=== PATIENT | male | born 1995 | race Caucasian/White ===

== ENCOUNTER 2016-08-16 01:08 | Emergency (ER) | payer BC ==
[~2016-08-16] VITALS: Ht 174 cm; Wt 96.9 kg
[~2016-08-16 01:08] MED LIST: AMOX1TAB16 PO; CEPH500C2 PO; DEXA4TAB PO; HYDR-4246 PO; PHEN180S PO
--- OUTSIDE RECORDS SUMMARY | 2016-08-16 01:13 | XMS REPORT ---
Author Author Erika Portillo [facility] eClinicalWorks Address Unknown Phone Unavailable Care Team Providers Care Pellet Mill Operator Name Role Phone Erika Portillo CP Unavailable Allergies, Adverse Reactions, Alerts Substance Reaction Event Type N.K.D.A. Info Not Available Non Drug Allergy Problems Problem Type Condition Code Onset Dates Condition Status Problem Asymptomatic human immunodeficiency virus (HIV) infection status Z21 Active Assessment Asymptomatic human immunodeficiency virus (HIV) infection status Z21 Active Problem Depression F32.9 Active Assessment Dermatitis L30.9 Active Medications Medication Code System Code Instructions Start Date End Date Status Dosage Cephalexin [facility] [address]-40 500 MG Orally Twice a day September 16, 2015 1 capsule Bactroban [facility] [address]-50 2 % Externally Three times a day September 18, 2015 1 application to affected area Genvoya [facility] [address]-58 150 mg/150 mg/200/mg/10 mg Oral Once a day September 16, 2015 1 tablet Procedures Procedure Coding System Code Date Office Visit, Est Pt., Level 3 CPT-4 51582 September 16, 2015 Vital Signs Date/Time: September 16, 2015 BMIPercentile 76.93 % Temperature 98.3 F Wt Percentile 70.89 % Weight 167.8 lbs Height 68.5 in Respiratory Rate 16 /min Cardiac Monitoring Heart Rate 78 /min Blood Pressure Diastolic 70 mm Hg Blood Pressure Systolic 114 mm Hg BMI 25.14 Index Oximetry 98 % Results No Known Results Summary Purpose eClinicalWorks Submission
--- OUTSIDE RECORDS SUMMARY | 2016-08-16 01:13 | XMS REPORT ---
Author Author Tierra Dupree eClinicalWorks Address Unknown Phone Unavailable Care Team Providers Care Motion Picture Projectionist Name Role Phone Tierra Dupree CP Unavailable Allergies, Adverse Reactions, Alerts Substance Reaction Event Type N.K.D.A. Info Not Available Non Drug Allergy Problems Problem Type Condition ICD-9 Code Onset Dates Condition Status Assessment Other general medical examination for administrative purposes V70.3 Active Medications No Known Medications Procedures Procedure Coding System Code Date ADMINISTRATION, 1ST IMMUNIZATION CPT-4 44840 June 01, 2014 H PAPILLOMA VACC 3 DOSE IM CPT-4 96888 June 01, 2014 MENINGOCOCCAL VACCINE, IM CPT-4 35380 June 01, 2014 WELL ADOLESCENT CHECK, EST (12-17 YR.) CPT-4 22163 June 01, 2014 ADMINISTRATION, EA ADDL IMMUNIZATION CPT-4 14767 June 01, 2014 Vital Signs Date/Time: June 01, 2014 Height 66 in Ht Percentile 12.12 % Weight 212.25 lbs Temperature 98.0 F Blood Pressure Diastolic 62 mm Hg Blood Pressure Systolic 103 mm Hg Cardiac Monitoring Heart Rate 64 /min BMI 34.25 Index BMIPercentile 98.92 % Wt Percentile 96.81 % Results No Known Results Immunizations Vaccine Administration Date Meningococcal Kristian (Menveo) June 01, 2014 HPV (Gardasil) June 01, 2014 Summary Purpose eClinicalWorks Submission
--- OUTSIDE RECORDS SUMMARY | 2016-08-16 01:13 | XMS REPORT ---
Author Author Erika Portillo Organization eClinicalWorks Address Unknown Phone Unavailable Care Team Providers Care Bank Officer Name Role Phone Erika Portillo Unavailable Allergies No Known Allergies Problems Problem Type Condition Code Onset Dates Condition Status Problem Depression F32.9 Active Problem Alopecia L65.9 Active Problem Generalized anxiety disorder F41.1 Active Problem Asymptomatic human immunodeficiency virus (HIV) infection status Z21 Active Medications No Known Medications Results No Known Results Summary Purpose eClinicalWorks Submission
--- OUTSIDE RECORDS SUMMARY | 2016-08-16 01:13 | XMS REPORT ---
Author Enid Huerta [facility] eClinicalWorks Address Unknown Phone Unavailable Care Team Providers Care Rip Sawyer Name Role Phone Enid Gilbert CP Unavailable Allergies, Adverse Reactions, Alerts Substance Reaction Event Type N.K.D.A. Info Not Available Non Drug Allergy Problems Problem Type Condition Code Onset Dates Condition Status Assessment Infectious mononucleosis, unspecified without complication B27.90 Active Problem Allergic rhinitis 477.9 Active Medications Medication Code System Code Instructions Start Date End Date Status Dosage Cephalexin [facility] [address]-31 500 MG Orally Twice a day 1 capsule Dexamethasone [facility] [address]-64 4 MG Orally Once a day 1 tablet Procedures Procedure Coding System Code Date OFFICE VISIT, EST-LOW COMPLEXITY (15 MIN.) CPT-4 77128 July 27, 2015 Vital Signs Date/Time: July 27, 2015 Temperature 97.8 F BMIPercentile 97.27 % Height 66 in Weight 196.8 lbs Blood Pressure Diastolic 63 mm Hg Blood Pressure Systolic 111 mm Hg Cardiac Monitoring Heart Rate 54 /min BMI 31.76 Index Wt Percentile 91.87 % Respiratory Rate 16 /min Results No Known Results Summary Purpose eClinicalWorks Submission
--- OUTSIDE RECORDS SUMMARY | 2016-08-16 01:13 | XMS REPORT ---
Author Author Erika Portillo [facility] eClinicalWorks Address Unknown Phone Unavailable Care Team Providers Care Actuarial Clerk Name Role Phone Erika Portillo CP Unavailable Allergies, Adverse Reactions, Alerts Substance Reaction Event Type N.K.D.A. Info Not Available Non Drug Allergy Problems Problem Type Condition Code Onset Dates Condition Status Problem Depression F32.9 Active Problem Alopecia L65.9 Active Problem Generalized anxiety disorder F41.1 Active Assessment Need for pneumococcal vaccine Z23 Active Problem Asymptomatic human immunodeficiency virus (HIV) infection status Z21 Active Assessment Asymptomatic human immunodeficiency virus (HIV) infection status Z21 Active Medications Medication Code System Code Instructions Start Date End Date Status Dosage Genvoya [facility] [address]-67 150 mg/150 mg/200/mg/10 mg Oral Once a day September 16, 2015 1 tablet Procedures Procedure Coding System Code Date T CELL, ABSOLUTE COUNT/RATIO CPT-4 16524 Feb 11, 2016 HIV-1, DNA, QUANT CPT-4 12132 Feb 11, 2016 COMPREHEN METABOLIC PANEL CPT-4 74823 Feb 11, 2016 GENOTYPE DNA HIV REVERSE T CPT-4 95829 Feb 11, 2016 GENOTYPE, DNA, HIV REVERSE T CPT-4 21918 Feb 11, 2016 Office Visit, Est Pt., Level 3 CPT-4 33333 Feb 11, 2016 PNEUMOCOCCAL VACC 13 AUREA IM CPT-4 28218 Feb 11, 2016 IMMUNIZATION ADMIN CPT-4 49543 Feb 11, 2016 PHENOTYPE, INFECT AGENT DRUG CPT-4 14442 Feb 11, 2016 Venipuncture CPT-4 43548 Feb 11, 2016 Vital Signs Date/Time: Feb 11, 2016 BMIPercentile 95.53 % Temperature 97.6 F Wt Percentile 93.64 % Weight 204 lbs Height 68.5 in Respiratory Rate 16 /min Cardiac Monitoring Heart Rate 62 /min Blood Pressure Diastolic 68 mm Hg Blood Pressure Systolic 112 mm Hg BMI 30.56 Index Oximetry 96 % Results No Known Results Immunizations Vaccine Administration Date Pneumococcal conjugate PCV 13 Feb 11, 2016 Summary Purpose eClinicalWorks Submission
--- OUTSIDE RECORDS SUMMARY | 2016-08-16 01:13 | XMS REPORT ---
Author Author Erika Portillo [facility] eClinicalWorks Address Unknown Phone Unavailable Care Team Providers Care Labor Relations Consultant Name Role Phone Erika Portillo Unavailable Allergies, Adverse Reactions, Alerts Substance Reaction Event Type N.K.D.A. Info Not Available Non Drug Allergy Problems Problem Type Condition Code Onset Dates Condition Status Problem Alopecia L65.9 Active Problem Asymptomatic human immunodeficiency virus (HIV) infection status Z21 Active Problem Depression F32.9 Active Assessment Generalized anxiety disorder F41.1 Active Assessment Asymptomatic human immunodeficiency virus (HIV) infection status Z21 Active Assessment Alopecia L65.9 Active Medications Medication Code System Code Instructions Start Date End Date Status Dosage Bactroban [facility] [address]-99 2 % Externally Three times a day September 18, 2015 1 application to affected area Cephalexin [facility] [address]-33 500 MG Orally Twice a day September 16, 2015 1 capsule Genvoya [facility] [address]-31 150 mg/150 mg/200/mg/10 mg Oral Once a day September 16, 2015 1 tablet Procedures Procedure Coding System Code Date T CELL, ABSOLUTE COUNT/RATIO CPT-4 60988 Oct 29, 2015 HIV-1, DNA, QUANT CPT-4 10826 Oct 29, 2015 COMPREHEN METABOLIC PANEL CPT-4 44163 Oct 29, 2015 Office Visit, Est Pt., Level 3 CPT-4 04415 Oct 29, 2015 ASSAY OF FREE THYROXINE CPT-4 11642 Oct 29, 2015 ASSAY THYROID STIM HORMONE CPT-4 51660 Oct 29, 2015 ASSAY OF TESTOSTERONE CPT-4 97022 Oct 29, 2015 ASSAY OF TOTAL TESTOSTERONE CPT-4 99609 Oct 29, 2015 Vital Signs Date/Time: Oct 29, 2015 BMIPercentile 93.9 % Temperature 96.9 F Wt Percentile 91.13 % Weight 195.8 lbs Height 68.5 in Respiratory Rate 16 /min Cardiac Monitoring Heart Rate 76 /min Blood Pressure Diastolic 70 mm Hg Blood Pressure Systolic 106 mm Hg BMI 29.34 Index Oximetry 97 % Results Name Result Date Reference Range Unit Abnormality Flag Thyroid-Stimulating Hormone (TSH) and Free T4 69019/30399 ----TSH 1.040 [id number] 0.450-4.500 uIU/mL ----T4,Free(Direct) 1.04 18815094 0.93-1.60 ng/dL Metabolic Panel (14), Comprehensive (CMP) 13990 ----Globulin, Total 2.5 55389595 1.5-4.5 g/dL ----eGFR If Africn Am 146 68023467 >59 mL/min/1.73 ----eGFR If NonAfricn Am 126 85114104 >59 mL/min/1.73 ----Albumin, Serum 4.5 00505420 3.5-5.5 g/dL ----Sodium, Serum 143 06314144 134-144 mmol/L ----Protein, Total, Serum 7.0 92415352 6.0-8.5 g/dL ----BUN/Creatinine Ratio 11 20151029 8-19 ----Calcium, Serum 9.5 76913553 8.7-10.2 mg/dL ----AST (SGOT) 24 55575782 0-40 IU/L ----Glucose, Serum 92 27215493 65-99 mg/dL ----Alkaline Phosphatase, S 65 53335600 39-117 IU/L ----Bilirubin, Total 0.4 20151029 0.0-1.2 mg/dL ----Creatinine, Serum 0.85 63004736 0.76-1.27 mg/dL ----A/G Ratio 1.8 20151029 1.1-2.5 ----BUN 9 20151029 6-20 mg/dL ----Carbon Dioxide, Total 23 27010552 18-29 mmol/L ----ALT (SGPT) 45 07005882 0-44 IU/L H ----Potassium, Serum 4.4 41925018 3.5-5.2 mmol/L ----Chloride, Serum 100 54493610 97-108 mmol/L Human Immunodeficiency Virus (HIV-1), Quantitative, Real-time PCR (graph) 09137 ----HIV-1 RNA by PCR 50 [id number] copies/mL ----log10 HIV-1 RNA 1.699 85895439 eno89azgh/mL Testosterone, Free, Direct with Total Testosterone 34880 98668 ----Free Testosterone(Direct) 23.5 31820533 Not Estab. pg/mL ----Testosterone, Serum 615 48288954 ng/dL CD4/CD8 Ratio Profile 51875 ----Hemoglobin 16.0 48483332 12.6-17.7 g/dL ----RBC 5.26 71885290 4.14-5.80 x10E6/uL ----WBC 6.4 46621175 3.4-10.8 x10E3/uL ----CD4/CD8 Ratio 0.64 32913813 0.92-3.72 L ----% CD 8 Pos. Lymph. 46.4 10451690 12.0-35.5 % H ----Abs. CD 8 Suppressor 882 83839885 109-897 /uL ----% CD 4 Pos. Lymph. 29.7 57272974 30.8-58.5 % L ----Immature Cells LABORER MINE 20151029 ----Absolute CD 4 [place] 564 75571581 359-1519 /uL ----Lymphs (Absolute) 1.9 74724390 0.7-3.1 x10E3/uL ----Neutrophils (Absolute) 4.0 76818776 1.4-7.0 x10E3/uL ----Eos (Absolute) 0.0 15242991 0.0-0.4 x10E3/uL ----Monocytes(Absolute) 0.4 15569088 0.1-0.9 x10E3/uL ----Immature Granulocytes 0 46285888 % ----Baso (Absolute) 0.0 42584602 0.0-0.2 x10E3/uL ----NRBC LABORER MINE 20151029 ----Immature Grans (Abs) 0.0 67098570 0.0-0.1 x10E3/uL ----Eos 1 72518401 % ----Basos 0 90320468 % ----Platelets 200 45914125 150-379 x10E3/uL ----Neutrophils 62 84951444 % ----Hematology Comments: LABORER MINE 20151029 ----Lymphs 30 53729985 % ----Monocytes 7 90992210 % ----MCV 91 80177090 79-97 fL ----MCH 30.4 03139661 26.6-33.0 pg ----MCHC 33.5 75729483 31.5-35.7 g/dL ----RDW 15.2 58415877 12.3-15.4 % ----Hematocrit 47.7 64306084 37.5-51.0 % Summary Purpose eClinicalWorks Submission
--- OUTSIDE RECORDS SUMMARY | 2016-08-16 01:13 | XMS REPORT ---
Author Tierra Sanches [facility] eClinicalWorks Address Unknown Phone Unavailable Care Team Providers Care Fruit Trimmer Name Role Phone Tierra Dupree CP Unavailable Allergies No Known Allergies Problems Problem Type Condition Code Onset Dates Condition Status Problem Allergic rhinitis 477.9 Active Medications No Known Medications Results No Known Results Summary Purpose eClinicalWorks Submission
--- OUTSIDE RECORDS SUMMARY | 2016-08-16 01:13 | XMS REPORT ---
Author Tierra Sanches [facility] eClinicalWorks Address Unknown Phone Unavailable Care Team Providers Care Rotary Driller Name Role Phone Tierra Dupree CP Unavailable Allergies No Known Allergies Problems Problem Type Condition Code Onset Dates Condition Status Problem Allergic rhinitis 477.9 Active Medications No Known Medications Results No Known Results Summary Purpose eClinicalWorks Submission
--- OUTSIDE RECORDS SUMMARY | 2016-08-16 01:13 | XMS REPORT ---
Author Author Nicolette Freed [facility] eClinicalWorks Address Unknown Phone Unavailable Care Team Providers Care Bow Making Machine Operator Name Role Phone Nicolette Freed CP Unavailable Allergies No Known Allergies Problems Problem Type Condition Code Onset Dates Condition Status Assessment Fever, unspecified R50.9 Active Problem Allergic rhinitis 477.9 Active Medications Medication Code System Code Instructions Start Date End Date Status Dosage Cephalexin [facility] [address]-46 500 MG Orally Twice a day 1 capsule Dexamethasone [facility] [address]-58 4 MG Orally Once a day 1 tablet Procedures Procedure Coding System Code Date URINALYSIS WITH MICROSCOPIC CPT-4 17104 August 03, 2015 RAPID INFLUENZA, IN HOUSE CPT-4 74877 August 03, 2015 LYME DISEASE EIA CPT-4 15839 August 03, 2015 [place] VIRUS IGG & IGM SERUM #2 CPT-4 51539 August 03, 2015 IH RAPID MONO CPT-4 19051 August 03, 2015 WESTNILE VIRUS IGG & IGM SERUM #1 CPT-4 06499 August 03, 2015 Results Name Result Date Reference Range Unit Abnormality Flag In House Rapid Butts ----Result neg [id number] Hepatitis Panel ----Hepatitis C Total Antibody Negative 20150803 ----Hepatitis Core Ab IGM Negative 20150803 ----Hepatitis A Antibody IGM Negative 20150803 ----Hepatitis B Surface Antigen Negative 20150803 Urinalysis with Microscopic ----Epithelial Cells 2-5 40420415 /HPF ----WBC, Urine 0-2 22845685 0-4 /HPF ----Hyaline Casts 4-6 03167482 0-3 /LPF * ----Specific [place] 1.029 04878235 1.003-1.030 ----Bilirubin Negative 82202377 Negative ----Nitrites Negative 34500852 Negative ----Protein Negative 81326912 Negative ----Blood Negative 37730832 Negative ----Urobilinogen 1.0 67876728 <1.0 mg/dL ----pH 6.5 01107930 5.0-8.0 ----RBC, Urine 0-4 45902004 0-4 /HPF ----Leukocyte Esterase Negative 20150803 Negative ----Appearance Turbid 20150803 * ----Color DkYellow 20150803 ----Glucose, Urine Negative 20150803 Negative ----Ketones Negative 20150803 Negative In House Rapid Flu Summary Purpose eClinicalWorks Submission
--- OUTSIDE RECORDS SUMMARY | 2016-08-16 01:13 | XMS REPORT ---
Author Author Enid Gilbert [facility] eClinicalWorks Address Unknown Phone Unavailable Care Team Providers Care Rn Iv Therapy Name Role Phone Enid Gilbert CP Unavailable Allergies, Adverse Reactions, Alerts Substance Reaction Event Type N.K.D.A. Info Not Available Non Drug Allergy Problems Problem Type Condition ICD-9 Code Onset Dates Condition Status Assessment Acute upper respiratory infections of unspecified site 465.9 Active Assessment Allergic rhinitis 477.9 Active Problem Allergic rhinitis 477.9 Active Medications Medication Code System Code Instructions Start Date End Date Status Dosage Fexofenadine HCl [facility] [address]-98 180 MG Orally Once a day October 09, 2014 Nov 08, 2014 1 tablet Fluticasone Propionate [facility] [address]-11 50 MCG/ACT Nasally Once a day October 09, 2014 1 spray in each nostril Procedures Procedure Coding System Code Date OFFICE VISIT, EST-LOW COMPLEXITY (15 MIN.) CPT-4 86734 October 09, 2014 Vital Signs Date/Time: October 09, 2014 Height 66 in BMIPercentile 99.23 % Weight 222.4 lbs Temperature 98.5 F Blood Pressure Diastolic 56 mm Hg Blood Pressure Systolic 120 mm Hg Cardiac Monitoring Heart Rate 80 /min BMI 35.89 Index Wt Percentile 97.78 % Respiratory Rate 18 /min Results No Known Results Summary Purpose eClinicalWorks Submission
--- OUTSIDE RECORDS SUMMARY | 2016-08-16 01:13 | XMS REPORT ---
Author Enid Huerta eClinicalWorks Address Unknown Phone Unavailable Care Team Providers Care Inseam Trimming Machine Operator Name Role Phone Enid Gilbert Unavailable Allergies No Known Allergies Problems Problem Type Condition Code Onset Dates Condition Status Assessment Streptococcal pharyngitis J02.0 Active Assessment Dehydration E86.0 Active Problem Allergic rhinitis 477.9 Active Medications Medication Code System Code Instructions Start Date End Date Status Dosage Hydrocodone-Acetaminophen [facility] [address]-24 5-325 MG Orally every 6 hrs July 21, 2015 July 31, 2015 1 tablet as needed Augmentin [facility] [address]-16 875-125 MG Orally Twice a day July 21, 2015 July 31, 2015 1 tablet Procedures Procedure Coding System Code Date COMPLETE CBC W/AUTO DIFF WBC CPT-4 75017 July 21, 2015 COMPREHENSIVE METABOLIC PANEL CPT-4 11145 July 21, 2015 OFFICE VISIT, EST-LOW COMPLEXITY (15 MIN.) CPT-4 39026 July 21, 2015 zofran CPT-4 J2405 July 21, 2015 HYDRATION IV INFUSION, INIT CPT-4 75343 July 21, 2015 Vital Signs Date/Time: July 21, 2015 Temperature 98.8 F BMIPercentile 97.88 % Height 66 in Weight 201.8 lbs Blood Pressure Diastolic 73 mm Hg Blood Pressure Systolic 123 mm Hg Cardiac Monitoring Heart Rate 82 /min BMI 32.57 Index Wt Percentile 93.61 % Respiratory Rate 16 /min Results Name Result Date Reference Range Unit Abnormality Flag eGFR ----eGFR >60 [id number] >60 mL/min CBC With Platelet and Differential ----Absolute Eosinophils 0.03 49374727 0.00-0.50 10*3 ----Absolute Monocytes 0.51 73742705 0.30-1.00 10*3 ----Neutrophils 65 96521250 51-75 % ----Absolute Basophils 0.02 09811948 0.00-0.20 10*3 ----MPV 12.0 31258310 8.8-14.8 fL ----Monocytes 12 17455054 4-11 % H ----RDW 12.9 82562951 11.5-14.5 % ----Lymphocytes 22 06822523 20-46 % ----MCHC 34.2 01230004 32.0-36.0 g/dL ----MCH 29.5 32692981 27.0-32.0 pg ----MCV 86.3 26629719 82.0-99.0 fL ----Immature Granulocytes 0.2 08021592 0.0-1.0 % ----Platelet Count 146 25423378 150-400 K/uL L ----Absolute Lymphocytes 0.99 43689154 0.80-3.30 10*3 ----Absolute Neutrophils 2.89 14699782 1.90-7.00 10*3 ----Eosinophils 1 56747878 0-4 % ----Basophils 0 18427641 0-2 % ----WBC 4.4 63791251 4.8-10.8 K/uL L ----RBC 6.14 82037741 4.60-6.20 10*6/uL ----HGB 18.1 30672023 14.0-18.0 g/dL H ----HCT 53.0 59725259 42.0-52.0 % H Comprehensive Metabolic Panel (CMP) ----Chloride 99 05737502 99-111 mEq/L ----Potassium 3.9 22588940 3.5-5.2 mEq/L ----Albumin 5.2 94206468 3.5-5.0 g/dL H ----CO2 27 67016748 23-31 mEq/L ----Alkaline Phosphatase 79 28246705 40-150 U/L ----Protein 8.3 60210389 6.4-8.3 g/dL ----Bilirubin Total 0.7 14574249 0.2-1.2 mg/dL ----Anion Gap 13 84934312 3-20 ----Calcium 9.5 13237526 8.9-10.5 mg/dL ----Globulin 3.1 54780905 1.8-4.0 g/dL ----Sodium 139 20150721 135-144 mEq/L ----BUN 16 20150721 9-21 mg/dL ----ALT (SGPT) 62 20150721 0-55 U/L H ----AST (SGOT) 52 20150721 5-34 U/L H ----Creatinine 1.13 20150721 0.72-1.25 mg/dL ----Glucose 78 20150721 70-99 mg/dL Summary Purpose eClinicalWorks Submission
[2016-08-16 01:28] VITALS: TEMP 98.6; Ht 174 cm; Wt 96.9 kg
--- NOTE | 2016-08-16 02:32 | ERPDOC ---
Departure Disposition Decision Date: August 16, 2016 Disposition Decision Time: 03:30 Disposition: 01 DISCHARGED HOME, SELF-CARE Impression Impression Impression: Primary Impression: Ankle sprain Encounter type: initial encounter Involved ligament of ankle: calcaneofibular ligament Laterality: left Qualified Codes: S93.412A - Sprain of calcaneofibular ligament of left ankle, initial encounter Severity: Moderate Condition: Improved Seen By: Physician only Referrals: TU MURRAY APRN (Family) Patient Instructions: Ankle Sprain (ED) Problems/Meds/Labs Reviewed?: Yes Medications reviewed and manag: Yes Additional Instructions: Keep ankle splint in place, clean, and dry, keep ankle iced and elevated for the next 2 days Use ibuprofen 600 mg 4 times daily as needed for baseline pain control [place] 5 mg one tablet every 6 hours as needed for more severe pain Walking and activities as tolerated Follow up care ordered?: Yes Mental Status: Alert Scripts Hydrocodone/Acetaminophen ([place] 5-325 Tablet) 5-325 Tablet 1 TAB PO QID Y for PAIN, #30 Prov: TATA OJEDA MD 08/16/16 HPI General Chief Complaint: Lower Extremity Injury Stated Complaint: LEFT ANKLE PAIN/INJ Time Seen by Provider: 02:26 Source: patient, family Exam Limitations: no limitations HPI Foot/Ankle Initial Comments Patient rolled his ankle tonight [place]. Took 600 mg ibuprofen at home, but has had swelling and difficulty standing on the leg since. Occurred At: school Onset: Rapid Duration: 4-6 hrs Severity: moderate Location: left: ankle 1 - Diffuse swelling, pain, and ecchymosis Method of Injury: fell, twisted Associated Symptoms: bruising, pain with extension, pain with flexion, pain with standing, swelling, DENIES: numbness, pallor, red streaks, redness, weakness Allergies: Coded Allergies: No Known Allergies (Unverified , 08/16/16) Past History Past Medical History Pt denies signifigant PMH Surgical History Denies Surgeries Family History Family PMH: FOUND: diabetes Review of Systems Constitutional Constitutional: DENIES: appetite decrease, appetite increase, chills, dizziness , fever, weakness ENMT Ears: DENIES: pain Hearing: DENIES: hearing loss, tinnitus Balance: DENIES: vertigo Mouth/Throat: DENIES: change in swallowing, change in voice, hoarsness, painful swallowing, sore throat Cardiovascular Cardiac: DENIES: chest pain, dyspnea on exertion Rhythm/Rate: DENIES: irregular beat, palpitations, tachycardia Vascular: DENIES: pedal edema Pulmonary Respiratory: DENIES: cough, dyspnea, pleuritic chest pain GI Upper Abdomen: DENIES: dysphagia, heartburn/indigestion, nausea, pain, vomiting Lower Abdomen: DENIES: blood in stool, constipation, diarrhea, pain General: DENIES: burning, dysuria, frequency, pain, urgency Musculoskeletal General: joint pain, joint swelling, pain, tenderness, DENIES: cramps, weakness Integumentary Skin: DENIES: rash, sores Neurological General: DENIES: headache, numbness, tingling, vertigo, weakness Exam General General Nourishment: well nourished, well developed, appears stated age, no acute distress General Body Habitus: well groomed Vital Signs: RN Vital Signs have been reviewed: Yes Height (Feet): 5 Height (Inches): 8 Fastrak Foot/Ankle Comments Moderate diffuse left lateral ankle pain from the lateral malleolus distally 3 cm. Minimal ecchymosis, limited flexion and extension of the ankle secondary to pain. Patient is neurovascularly intact Neurologic RN Documented GCS Eye Opening: Verbal: Motor: Total: Procedures Procedures Performed Procedures Performed: Splinting Splinting Procedure Splint : Site: ankle Pre-placement NV: FOUND: cap refill < 3 sec, good movement, good sensation Pre-Made Type: aircast Post-placement NV: FOUND: cap refill < 3 sec, good movement, good sensation Applied by: RN, MD/DO Progress Results/Orders Orders Procedure Category Date Status Time Ankle Left 3 View RAD 08/16/16 Taken Premade Splint EDM 08/16/16 Transmitted 03:27 Progress Progress Patient declines pain medication at this time Ankle films - negative After x-rays, patient's pain seemed to be increasing and he accept pain medication, he prefers intramuscular injection, he is given Dilaudid 1 mg, and [place] pack to go home with. Patient was also placed in an air splint/cast for the ankle. TATA OJEDA MD August 16, 2016 02:32
--- NOTE | 2016-08-16 03:04 | NUR ---
IMAGING PT LEAVES WITH IMAGING STAFF AT THIS TIME.
--- NOTE | 2016-08-16 03:15 | NUR ---
RETURN PT RETURNS TO RECLINER IN [facility] AT THIS TIME, MOTHER REMAINS AT BEDSIDE.
[2016-08-16] MEDS ORDERED: NO CURRENT HOME MEDS (03:17)
[2016-08-16] MEDS ORDERED: HYDROMORPHONE 2mg/ml INJECTION IM ONE (03:30)
[2016-08-16] MEDS ORDERED: HYDROCODONE/APAP 5/325 (PrePack) SENT HOME ONE (03:30)
[2016-08-16] MEDS ORDERED: HYDR-4246 PO (03:31)
[2016-08-16 04:01] VITALS: BP 123/59; PULSE 64; RESP 12; O2SAT 95
--- NOTE | 2016-08-16 04:01 | NUR ---
DEPART PT IS DISCHARGED AT THIS TIME, INSTRUCTIONS ARE REVIEWED AND UNDERSTANDING IS VOICED. PT LEAVES VIA WHEELCHAIR WITH HIS MOTHER AND BROTHER.
--- NOTE | 2016-08-16 07:57 | DI ---
Indication: ITS.REASON: left lateral ankle rolled, pain PROCEDURE: ANKLE LEFT 3 VIEW: Encounter: Initial Comparison: None Findings: There is no acute fracture, dislocation or malalignment identified. Impression: No acute osseous abnormality. .
== END 2016-08-16 04:01 | disposition home or self-care (01) ==
LOC: ED 01:08
DX: S93.412A Sprain of calcaneofibular ligament of left ankle, initial encounter (principal); X50.1XXA Overexertion from prolonged static or awkward postures, initial encounter; Y93.67 Activity, basketball; Y92.310 Basketball court as the place of occurrence of the external cause; Y99.8 Other external cause status